=== PATIENT | male | born 1990 | race African-American/Black ===

== ENCOUNTER 2017-11-23 09:00 | Emergency (ER) | payer OTHER ==
[~2017-11-23] VITALS: Ht 188 cm; Wt 115.0 kg
[2017-11-23 09:08] VITALS: BP 137/85; PULSE 84; RESP 17; TEMP 98.6; O2SAT 100
[2017-11-23] MEDS ORDERED: SODIUM CHLOR 0.9% 1000 ML INJ 1,000 ML IV SCH (10:03)
[2017-11-23 10:05] VITALS: O2SAT 99
--- NOTE | 2017-11-23 10:05 | PD ---
HPI Chief Complaint: Headache Time Seen by Provider: 09:39 Travel History International Travel<30 days: No Contact w/Intl Traveler<30days: No Traveled to known affect area: No History of Present Illness HPI Patient is a 27-year-old male presents emergency department for evaluation of headache this started after a 3 day history of nausea vomiting and diarrhea. Patient denies any blood in the stool or blood in the emesis denies any biliary emesis denies any melena stools. Patient states that he has not had any fevers and no other sick contacts. No abdominal pain. He states he is feeling pretty rundown as well. States that he was vomiting up even clear liquids. States symptoms are progressing, mild, bifrontal, context as above. PFSH Past Medical History Headaches: Yes Tetanus Vaccination: Unknown Past Surgical History Surgical History: No Previous Surgery Social History Alcohol Use: No Tobacco Use: No Substance Use: No Allergies-Medications (Allergen,Severity, Reaction): Coded Allergies: No Known Allergies (Unverified , 11/23/17) Reported Meds & Prescriptions Reported Meds & Active Scripts Active Zofran (Ondansetron HCl) 4 Mg Tab 4 Mg PO Q6HR PRN Review of Systems Except as stated in HPI: all other systems reviewed are Neg Physical Exam Narrative GENERAL: Well-developed well-nourished no obvious distress. Quite pleasant peer SKIN: Focused skin assessment warm/dry. HEAD: Atraumatic. Normocephalic. EYES: Pupils equal and round. No scleral icterus. No injection or drainage. ENT: No nasal bleeding or discharge. Mucous membranes pink and moist. NECK: Trachea midline. No JVD. CARDIOVASCULAR: Regular rate and rhythm. No murmur appreciated. RESPIRATORY: No accessory muscle use. Clear to auscultation. Breath sounds equal bilaterally. GASTROINTESTINAL: Abdomen soft, non-tender, nondistended. Hepatic and splenic margins not palpable. MUSCULOSKELETAL: No obvious deformities. No clubbing. No cyanosis. No edema. NEUROLOGICAL: Awake and alert. Cranial nerves II through XII are grossly intact and nonfocal, 5 out of 5 strength in all 4 extremities. PSYCHIATRIC: Appropriate mood and affect; insight and judgment normal. Data Data Last Documented VS Vital Signs Date Time Temp Pulse Resp B/P (MAP) Pulse Ox O2 Delivery O2 Flow Rate FiO2 11/23/17 11:40 70 20 132/49 (76) 100 11/23/17 09:08 98.6 Orders Orders Complete Blood Count With Diff (11/23/17 10:03) Comprehensive Metabolic Panel (11/23/17 10:03) Urinalysis - C+S If Indicated (11/23/17 10:03) Iv Access Insert/Monitor (11/23/17 10:03) Ecg Monitoring (11/23/17 10:03) Oximetry (11/23/17 10:03) Ondansetron Inj (Zofran Inj) (11/23/17 10:15) Sodium Chlor 0.9% 1000 Ml Inj (Ns 1000 M (11/23/17 10:03) Sodium Chloride 0.9% Flush (Ns Flush) (11/23/17 10:15) Acetaminophen (Tylenol) (11/23/17 10:15) Ed Discharge Order (11/23/17 11:15) Labs Laboratory Tests Test 11/23/17 10:15 11/23/17 11:10 White Blood Count 4.6 TH/MM3 Red Blood Count 4.67 MIL/MM3 Hemoglobin 14.0 GM/DL Hematocrit 41.2 % Mean Corpuscular Volume 88.1 FL Mean Corpuscular Hemoglobin 30.1 PG Mean Corpuscular Hemoglobin Concent 34.1 % Red Cell Distribution Width 15.1 % Platelet Count 134 TH/MM3 Mean Platelet Volume 10.3 FL Neutrophils (%) (Auto) 63.1 % Lymphocytes (%) (Auto) 24.2 % Monocytes (%) (Auto) 8.8 % Eosinophils (%) (Auto) 3.2 % Basophils (%) (Auto) 0.7 % Neutrophils # (Auto) 2.9 TH/MM3 Lymphocytes # (Auto) 1.1 TH/MM3 Monocytes # (Auto) 0.4 TH/MM3 Eosinophils # (Auto) 0.1 TH/MM3 Basophils # (Auto) 0.0 TH/MM3 CBC Comment DIFF FINAL Differential Comment Blood Urea Nitrogen 13 MG/DL Creatinine 1.18 MG/DL Random Glucose 89 MG/DL Total Protein 7.4 GM/DL Albumin 3.8 GM/DL Calcium Level 8.3 MG/DL Alkaline Phosphatase 40 U/L Aspartate Amino Transf (AST/SGOT) 24 U/L Alanine Aminotransferase (ALT/SGPT) 44 U/L Total Bilirubin 0.6 MG/DL Sodium Level 142 MEQ/L Potassium Level 4.4 MEQ/L Chloride Level 107 MEQ/L Carbon Dioxide Level 30.1 MEQ/L Anion Gap 5 MEQ/L Estimat Glomerular Filtration Rate 90 ML/MIN Urine Color LIGHT-YELLOW Urine Turbidity CLEAR Urine pH 8.0 Urine Specific [place] 1.014 Urine Protein NEG mg/dL Urine Glucose (UA) NEG mg/dL Urine Ketones NEG mg/dL Urine Occult Blood NEG Urine Nitrite NEG Urine Bilirubin NEG Urine Urobilinogen LESS THAN 2.0 MG/DL Urine Leukocyte Esterase NEG Urine Squamous Epithelial Cells <1 /hpf Microscopic Urinalysis Comment CULT NOT INDICATED MDM Medical Decision Making Medical Screen Exam Complete: Yes Emergency Medical Condition: Yes Differential Diagnosis Headache, dehydration, nausea vomiting, electrolyte abnormality. Narrative Course Patient room to the emergency department, labs are reassuring, given normal saline and Zofran, he is feeling much better would like to go home, his abdomen is benign and there is no indication further workup this time. Discussed symptomatic management and return to ED criteria. Diagnosis Primary Impression: N&V (nausea and vomiting) Additional Impression: Weakness Med/Other Pt SpecificInfo: Prescription(s) given Scripts Ondansetron (Zofran) 4 Mg Tab 4 MG PO Q6HR Y for NAUSEA OR VOMITING, #20 TAB 0 Refills Prov: Elio Pearson MD 11/23/17 Disposition: 01 DISCHARGE HOME Condition: Stable Elio Pearson MD Nov 23, 2017 10:05
[2017-11-23] MEDS ORDERED: SODIUM CHLORIDE 0.9% FLUSH 10 ML FLUSH IV FLUSH PRN (10:15)
[2017-11-23] MEDS ORDERED: ONDANSETRON HCL 4 MG/2 ML VIAL IVP ONE (10:15)
[2017-11-23] MEDS ORDERED: ACETAMINOPHEN 325 MG TAB PO ONE (10:15)
[2017-11-23 10:43] LABS: AUTOMATED NEUTROPHIL # 2.9 TH/MM3 (1.8-7.7); BASOPHIL % 0.7 % (0.0-2.0); EOSINOPHIL # 0.1 TH/MM3 (0-0.4); EOSINOPHIL % 3.2 % (0.0-4.0); HEMATOCRIT 41.2 % (39.0-51.0); LYMPH % 24.2 % (9.0-44.0); LYMPHOCYTE # 1.1 TH/MM3 (1.0-4.8); MEAN CELL VOLUME 88.1 FL (80.0-100.0); MEAN CORPUSCULAR HEMOGLOBIN 30.1 PG (27.0-34.0); MEAN CORPUSCULAR HGB CONC 34.1 % (32.0-36.0); MEAN PLATELET VOLUME 10.3 FL (7.0-11.0); MONO % 8.8 % (0.0-8.0); MONOCYTE # 0.4 TH/MM3 (0-0.9); NEUT % 63.1 % (16.0-70.0); PLATELET COUNT 134 TH/MM3 (150-450); RED BLOOD COUNT 4.67 MIL/MM3 (4.50-5.90); RED CELL DISTRIBUTION WIDTH 15.1 % (11.6-17.2); WHITE BLOOD COUNT 4.6 TH/MM3 (4.0-11.0)
[2017-11-23 10:49] LABS: ALBUMIN 3.8 GM/DL (3.4-5.0); ALT (GPT) 44 U/L (12-78); AST (GOT) 24 U/L (15-37); BICARBONATE 30.1 MEQ/L (21.0-32.0); BLOOD UREA NITROGEN 13 MG/DL (7-18); CALCIUM 8.3 MG/DL (8.5-10.1); CHLORIDE 107 MEQ/L (98-107); CREATININE 1.18 MG/DL (0.60-1.30); GLOMERULAR FILTRATION RATE 90 ML/MIN (>89); GLUCOSE,RANDOM 89 MG/DL (74-106); SODIUM (NA) 142 MEQ/L (136-145)
[2017-11-23 10:51] LABS: ALKALINE PHOSPHATASE 40 U/L (45-117); TOTAL BILIRUBIN ADULT 0.6 MG/DL (0.2-1.0); TOTAL PROTEIN 7.4 GM/DL (6.4-8.2)
[2017-11-23] MEDS ORDERED: ZOFR4TAB PO (11:14)
[2017-11-23 11:40] VITALS: BP 132/49
[2017-11-23 11:41] LABS: BILIRUBIN, URINE NEG (NEG); BLOOD, URINE NEG (NEG); GLUCOSE,URINE NEG (NEG); KETONE, URINE NEG (NEG); NITRITE,URINE NEG (NEG); SQUAMOUS EPITHELIAL CELL URINE <1 /hpf (0-5); URINE COLOR LIGHT-YELLOW (YELLW/STRAW); URINE LEUKOCYTE ESTERASE NEG (NEG)
== END 2017-11-23 11:40 | disposition home or self-care (01) ==
LOC: NEPD 09:00
DX: R11.2 Nausea with vomiting, unspecified (principal); R53.1 Weakness; R51 Headache
CPT/HCPCS: 80053; 81001; 85025; 96374; 99284; J2405; J7030